=== PATIENT | female | born 1970 | race Caucasian/White ===

== ENCOUNTER 2016-07-08 09:54 | Emergency (ER) | payer OTHER ==
[~2016-07-08] VITALS: Ht 165.1 cm; Wt 156.0 kg
[~2016-07-08 09:54] MED LIST: ASPI81TA21 PO; FERR65TA PO; LISI-357 PO; VITA400C28 PO
[2016-07-08 10:03] VITALS: BP 122/76; PULSE 82; RESP 16; TEMP 97.3; O2SAT 100
[2016-07-08 11:05] VITALS: RESP 18; O2SAT 98
[2016-07-08] MEDS ORDERED: ASPI81CH CHEW (11:12)
[2016-07-08] MEDS ORDERED: FERR65TA PO (11:12)
[2016-07-08] MEDS ORDERED: LISI10TA3 PO (11:12)
[2016-07-08] MEDS ORDERED: CHOL400D2 PO (11:13)
[2016-07-08] MEDS ORDERED: SODIUM CHLORIDE 0.9% FLUSH 5 ML FLUSH IVF PRN (11:15)
--- NOTE | 2016-07-08 11:20 | PD ---
HPI Chief Complaint: Respiratory Symptoms Time Seen by Provider: 10:57 Travel History International Travel<30 days: No Contact w/Intl Traveler<30days: No Traveled to known affect area: No History of Present Illness HPI So 45-year-old woman presents to the emergency department complaining "my lungs are hurting". She states that starting yesterday and today she can tell that she was not breathing right. She has pain in her lungs that she localizes to kind of in her back below her scapula on both sides. She states she's had trouble with "reactive airway disease" in the past stated that she developed wheezing when she was sick before. Since he symptoms started she also feels that she has a deep voice, and is coughing some. She was remote history of tobacco use but has not smoked in 15 years or so. She also complains that her ankles and been swollen and her left leg hurts around her ankle. No history of blood clots in her legs or lungs. No other history of heart or lung disease. History Past Medical History Narrative Medical Hypertension "Reactive airway disease" Menopausal: No : 1 Para: 1 Social History Alcohol Use: No Tobacco Use: No Allergies-Medications (Allergen,Severity, Reaction): Coded Allergies: Bactrim (Verified Allergy, Severe, THROAT/TONGUE SWELLING, 04/20/16) Darvocet-N 100 (Verified Allergy, Severe, RASH, 04/20/16) Lortab (Verified Allergy, Severe, RASH, 04/20/16) PT VERBALIZES RASH Zithromax (Verified Allergy, Severe, rash, 04/20/16) Augmentin (Verified Adverse Reaction, Severe, N/V/D, 04/20/16) Reported Meds & Prescriptions Reported Meds & Active Scripts Active Reported Vitamin D (Cholecalciferol) 400 Unit/Ml Drops 400 Units PO EVERY OTHER DAY Feosol (Ferrous Sulfate) 65 Mg Tab 65 Mg PO EVERY OTHER DAY Lisinopril 10 Mg Tab 10 Mg PO EVERY OTHER DAY Aspirin 81 Mg Chew 81 Mg CHEW EVERY OTHER DAY Review of Systems Except as stated in HPI: all other systems reviewed are Neg Physical Exam Narrative GENERAL: Well-appearing 45-year-old woman, no acute distress. SKIN: Warm and dry. CARDIOVASCULAR: Regular rate and rhythm. No murmur appreciated. RESPIRATORY: No accessory muscle use. Clear to auscultation. Breath sounds equal bilaterally. GASTROINTESTINAL: Abdomen soft, non-tender, nondistended. Hepatic and splenic margins not palpable. MUSCULOSKELETAL: She is very obese legs. There is no obvious asymmetry. There is no calf tenderness. She has some minimal edema around her ankles. This is symmetric. She complains of pain in the edema on the left side. NEUROLOGICAL: Awake and alert. No obvious cranial nerve deficits. Motor grossly within normal limits. Normal speech. PSYCHIATRIC: Appropriate mood and affect; insight and judgment normal. Data Data Last Documented VS Vital Signs Date Time Temp Pulse Resp B/P Pulse Ox O2 Delivery O2 Flow Rate FiO2 07/08/16 11:42 77 18 122/66 100 Room Air 07/08/16 10:03 97.3 Orders Complete Blood Count With Diff (07/08/16 11:07) Basic Metabolic Panel (Bmp) (07/08/16 11:07) D-Dimer (07/08/16 11:07) Act Partial Throm Time (Ptt) (07/08/16 11:07) Prothrombin Time / Inr (Pt) (07/08/16 11:07) Iv Access Insert/Monitor (07/08/16 11:07) Electrocardiogram (07/08/16 11:07) Ecg Monitoring (07/08/16 11:07) Oximetry (07/08/16 11:07) Oxygen Administration (07/08/16 11:07) Chest, Pa & Lat (07/08/16 11:07) Sodium Chloride 0.9% Flush (Ns Flush) (07/08/16 11:15) Labs Laboratory Tests Test 07/08/16 11:20 White Blood Count 7.4 TH/MM3 Red Blood Count 4.74 MIL/MM3 Hemoglobin 12.2 GM/DL Hematocrit 38.5 % Mean Corpuscular Volume 81.2 FL Mean Corpuscular Hemoglobin 25.8 PG Mean Corpuscular Hemoglobin 31.8 % Concent Red Cell Distribution Width 14.3 % Platelet Count 310 TH/MM3 Mean Platelet Volume 7.4 FL Neutrophils (%) (Auto) 70.3 % Lymphocytes (%) (Auto) 19.4 % Monocytes (%) (Auto) 5.4 % Eosinophils (%) (Auto) 4.2 % Basophils (%) (Auto) 0.7 % Neutrophils # (Auto) 5.2 TH/MM3 Lymphocytes # (Auto) 1.4 TH/MM3 Monocytes # (Auto) 0.4 TH/MM3 Eosinophils # (Auto) 0.3 TH/MM3 Basophils # (Auto) 0.1 TH/MM3 CBC Comment DIFF FINAL Differential Comment Prothrombin Time 10.3 SEC Prothromb Time International 0.9 RATIO Ratio Activated Partial 28.2 SEC Thromboplast Time D-Dimer Quantitative (PE/DVT) 0.48 MG/L FEU Sodium Level 140 MEQ/L Potassium Level 4.5 MEQ/L Chloride Level 107 MEQ/L Carbon Dioxide Level 24.2 MEQ/L Anion Gap 9 MEQ/L Blood Urea Nitrogen 11 MG/DL Creatinine 0.92 MG/DL Estimat Glomerular Filtration 66 ML/MIN Rate Random Glucose 98 MG/DL Calcium Level 8.6 MG/DL [facility] Medical Decision Making Medical Screen Exam Complete: Yes Emergency Medical Condition: Yes Interpretation(s) My review of EKG: Normal sinus rhythm at a rate of 79, normal axis, normal intervals, no ischemia. LABS: CBC is unremarkable. BMP is unremarkable. Coags unremarkable D-dimer unremarkable Chest x-ray: Negative Differential Diagnosis Anxiety, pleurisy, URI, PE, other Narrative Course Medical decision making 45-year-old woman presents emergent from lung pain in deep voice. I think she probably is having accommodation of URI symptoms and anxiety. She has is complaints of some leg pain. She is very obese legs but no obvious edema or swelling to suggest syncope. Given the concern and the atypical nature of her chest pain, we'll check d-dimer. We'll check EKG and chest x-ray. Likely reassurance and supportive treatment. Diagnosis Primary Impression: Chest pain Qualified Code: R07.89 - Other chest pain Additional Instructions: Take Naprosyn as needed for lung pain. Follow-up with your primary doctor in the next 2-4 days if you're not feeling improved. Return to the emergency department for any worsening chest pain, trouble breathing, or any other new or worsening symptoms. Med/Other Pt SpecificInfo: Prescription(s) given Scripts Naproxen (Naprosyn)500 Mg [id number] Mg PO BID PRN (PAIN SCALE 1 TO 10) #20 TAB Prov:Liam Kruse MD 07/08/16 Disposition: 01 DISCHARGE HOME Condition: Stable Liam Kruse MD Jul 08, 2016 11:20
[2016-07-08 11:28] LABS: AUTOMATED NEUTROPHIL # 5.2 TH/MM3 (1.8-7.7); BASOPHIL # 0.1 TH/MM3 (0-0.2); BASOPHIL % 0.7 % (0.0-2.0); EOSINOPHIL # 0.3 TH/MM3 (0-0.4); EOSINOPHIL % 4.2 % (0.0-4.0); HEMATOCRIT 38.5 % (35.0-46.0); HEMO FLAGS DIFF FINAL; LYMPH % 19.4 % (9.0-44.0); LYMPHOCYTE # 1.4 TH/MM3 (1.0-4.8); MEAN CELL VOLUME 81.2 FL (80.0-100.0); MEAN CORPUSCULAR HEMOGLOBIN 25.8 PG (27.0-34.0); MEAN CORPUSCULAR HGB CONC 31.8 % (32.0-36.0); MONO % 5.4 % (0.0-8.0); NEUT % 70.3 % (16.0-70.0); PLATELET COUNT 310 TH/MM3 (150-450); RED BLOOD COUNT 4.74 MIL/MM3 (4.00-5.30); RED CELL DISTRIBUTION WIDTH 14.3 % (11.6-17.2); WHITE BLOOD COUNT 7.4 TH/MM3 (4.0-11.0)
[2016-07-08 11:35] LABS: POTASSIUM 4.5 MEQ/L (3.5-5.1)
[2016-07-08 11:39] LABS: BICARBONATE 24.2 MEQ/L (21.0-32.0)
[2016-07-08 11:42] VITALS: BP 122/66; PULSE 77; RESP 18; O2SAT 100
[2016-07-08 11:44] LABS: APTT (PATIENT) 28.2 SEC (24.3-30.1); INTERNATIONAL NORMALIZED RATIO 0.9 RATIO; PROTHROMBIN TIME - PATIENT 10.3 SEC (9.8-11.6)
--- NOTE | 2016-07-08 11:48 | RADHPO ---
EXAM DATE/TIME: 07/08/2016 11:25 [facility] COMPARISON: CHEST PA & LAT, July 11, 2015, 7:34. INDICATIONS : Chest pain, short of breath. MEDICAL HISTORY : None. SURGICAL HISTORY : None. ENCOUNTER: Initial ACUITY: 1 week PAIN SCORE: 4/10 LOCATION: Bilateral chest FINDINGS: PA and lateral views of the chest demonstrate the lungs to be symmetrically aerated without evidence of mass, infiltrate or effusion. The cardiomediastinal contours are unremarkable. Osseous structure s are intact. CONCLUSION: Normal examination for a patient of this age. No significant change has occurred. Jarred Souza MD on July 08, 2016 at 11:44 Board Certified Radiologist. This report was verified electronically.
[2016-07-08] MEDS ORDERED: NAPR500 PO (11:53)
--- NOTE | 2016-07-08 16:56 | EKG ---
Date Performed: 07/08/2016 Time Performed: 11:10:52 PTAGE: 45 years EKG: Sinus rhythm Normal ECG NO SIGNIFICANT CHANGE FROM PRIOR ELECTROCARDIOGRAM. PREVIOUS TRACING : 04/20/2016 10.00 DOCTOR: Patrick Banda Interpretating Date/Time 07/08/2016 16:54:46
== END 2016-07-08 12:11 | disposition home or self-care (01) ==
LOC: PHED 09:54
DX: R07.9 Chest pain, unspecified (principal); R06.02 Shortness of breath; I10 Essential (primary) hypertension; J45.909 Unspecified asthma, uncomplicated
CPT/HCPCS: 71020; 80048; 85025; 85379; 85610; 85730; 93005

== ENCOUNTER 2016-08-11 07:14 | Emergency (ER) | payer OTHER ==
[~2016-08-11] VITALS: Ht 165.1 cm; Wt 151.0 kg
[~2016-08-11 07:14] MED LIST changes: +ASPI81CH CHEW; -ASPI81TA21 PO; +CHOL400D2 PO; -LISI-357 PO; +LISI10TA3 PO; +NAPR500 PO; -VITA400C28 PO
[2016-08-11 07:23] VITALS: BP 139/81; PULSE 97; RESP 16; TEMP 98.4
[2016-08-11] MEDS ORDERED: ZOFR4TAB3 SL (07:41)
--- NOTE | 2016-08-11 07:41 | PD ---
HPI Chief Complaint: Cold / Flu Symptoms Time Seen by Provider: 07:39 Travel History International Travel<30 days: No Contact w/Intl Traveler<30days: No Traveled to known affect area: No History of Present Illness HPI Patient is a 45-year-old female presents with cough congestion sore throat and nausea since yesterday. Patient states she's had some phlegm production has been swallowing it just makes her nauseous. States that she has some over-the- counter nausea medicine that she uses because her lisinopril makes her nauseous. States no objective fevers but did feel cold and chills yesterday. Denies any close sick contacts. Denies any body aches. Denies any abdominal pain diarrhea or vomiting. 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, mini stoke) Psychiatric: Yes Reproductive: Yes Respiratory: Yes Integumentary: Yes (chronic athletes foot) Immunizations Current: No Migraines: Yes Tetanus Vaccination: < 5 Years Influenza Vaccination: No ?: Not LMP: 1 week ago Menopausal: No : 1 Para: 1 Miscarriage: 0 : 0 Ectopic : Yes (1991) Tubal Ligation: Yes (1991) Past Surgical History AICD: No Gynecologic Surgery: Yes (tubal ligation 92) Joint Replacement: No Other Surgery: Yes ([place]) Social History Alcohol Use: Yes (rarely-wine,beer) Tobacco Use: No (quit 14 yrs ago) Substance Use: No Allergies-Medications (Allergen,Severity, Reaction): Coded Allergies: Bactrim (Verified Allergy, Severe, THROAT/TONGUE SWELLING, 08/11/16) Darvocet-N 100 (Verified Allergy, Severe, RASH, 08/11/16) Lortab (Verified Allergy, Severe, RASH, 08/11/16) PT VERBALIZES RASH Zithromax (Verified Allergy, Severe, rash, 08/11/16) Augmentin (Verified Adverse Reaction, Severe, N/V/D, 08/11/16) Reported Meds & Prescriptions Reported Meds & Active Scripts Active Zofran Odt (Ondansetron Odt) 4 Mg Tab 4 Mg SL Q6HR PRN Reported Vitamin D (Cholecalciferol) 400 Unit/Ml Drops 400 Units PO EVERY OTHER DAY Feosol (Ferrous Sulfate) 65 Mg Tab 65 Mg PO EVERY OTHER DAY Lisinopril 10 Mg Tab 10 Mg PO EVERY OTHER DAY Aspirin 81 Mg Chew 81 Mg CHEW EVERY OTHER DAY Review of Systems Except as stated in HPI: all other systems reviewed are Neg Physical Exam Narrative GENERAL: Well-developed obese in no apparent distress SKIN: Warm and dry. HEAD: Atraumatic. Normocephalic. EYES: Pupils equal and round. No scleral icterus. No injection or drainage. ENT: No nasal bleeding or discharge. Mucous membranes pink and moist. Tonsils normal, TMs clear bilaterally. NECK: Trachea midline. No JVD. No lymphadenopathy. CARDIOVASCULAR: Regular rate and rhythm. No murmur appreciated. RESPIRATORY: No accessory muscle use. Clear to auscultation. Breath sounds equal bilaterally. GASTROINTESTINAL: Abdomen soft, non-tender, nondistended. Hepatic and splenic margins not palpable. MUSCULOSKELETAL: No obvious deformities. No clubbing. No cyanosis. No edema. Data Data Last Documented VS Vital Signs Date Time Temp Pulse Resp B/P Pulse Ox O2 Delivery O2 Flow Rate FiO2 08/11/16 07:32 16 97 Room Air 08/11/16 07:23 98.4 97 139/81 MDM Medical Decision Making Medical Screen Exam Complete: Yes Emergency Medical Condition: Yes Differential Diagnosis URI, pharyngitis unlikely, tonsillitis unlikely, pneumonia likely. Narrative Course Patient was roomed in the emergency department, my initial evaluation she is sitting upright in a stretcher talking on the cell phone and NAD. Physical exam is reassuring. Discussed with her symptomatically management will add Zofran. Discussed return to ED criteria and follow-up with a primary care physician. Diagnosis Primary Impression: URI (upper respiratory infection) Qualified Code: J06.9 - Viral upper respiratory tract infection Additional Impression: Nausea Departure Forms: Tests/Procedures, Work Release Enter return to work date: Aug 12, 2016 Med/Other Pt SpecificInfo: Prescription(s) given Scripts Ondansetron Odt (Zofran Odt)4 Mg Tab4 Mg SL Q6HR PRN (Nausea/Vomiting) #30 TAB Ref 0 Prov:Ramos Alberto MD 08/11/16 Disposition: 01 DISCHARGE HOME Condition: Stable Ramos Alberot MD Aug 11, 2016 07:41
== END 2016-08-11 07:57 | disposition home or self-care (01) ==
LOC: PHEFT 07:14
DX: J06.9 Acute upper respiratory infection, unspecified (principal); R11.0 Nausea
CPT/HCPCS: 99283

== ENCOUNTER 2016-08-17 07:25 | Emergency (ER) | payer OTHER ==
[~2016-08-17] VITALS: Ht 165.1 cm; Wt 150.0 kg
[~2016-08-17 07:25] MED LIST changes: -NAPR500 PO; +ZOFR4TAB3 SL
[2016-08-17 07:31] VITALS: BP 149/89; PULSE 110; RESP 16; TEMP 97.9; O2SAT 96
[2016-08-17] MEDS ORDERED: FLONASE (08:12)
[2016-08-17] MEDS ORDERED: CIPR-9 PO (08:12)
--- NOTE | 2016-08-17 08:12 | PD ---
HPI Chief Complaint: Dizziness Time Seen by Provider: 08:07 Travel History International Travel<30 days: No Contact w/Intl Traveler<30days: No Traveled to known affect area: No History of Present Illness HPI 45-year-old female is complains of congestion and facial pressure. Patient started having sore throat about a week ago. Patient states that the sore throat resolved after several days. Patient states that she has intermittent mild dry cough. Patient states that she has persistent nasal congestion with facial pain. Patient denies any nausea vomiting diarrhea. Patient denies any chest pain or shortness of breath. Patient denies abdominal pain. Patient denies any fever chills. 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, mini stoke) Psychiatric: Yes Reproductive: Yes Respiratory: Yes (RAD) Integumentary: Yes (chronic athletes foot, hx of cellulitis) Immunizations Current: No Migraines: Yes Tetanus Vaccination: < 5 Years Influenza Vaccination: No ?: Not LMP: 08/10/16 Menopausal: No : 1 Para: 1 Miscarriage: 0 : 0 Ectopic : Yes (1991) Tubal Ligation: Yes (1991) Past Surgical History AICD: No Gynecologic Surgery: Yes (tubal ligation 92) Joint Replacement: No Other Surgery: Yes ([place] OF [place] BLOCK[place]) Social History Alcohol Use: Yes (rarely-wine,beer) Tobacco Use: No (quit 14 yrs ago, hx of 2 ppd of cigs) Substance Use: No Allergies-Medications (Allergen,Severity, Reaction): Coded Allergies: Bactrim (Verified Allergy, Severe, THROAT/TONGUE SWELLING, 08/11/16) Darvocet-N 100 (Verified Allergy, Severe, RASH, 08/11/16) Lortab (Verified Allergy, Severe, RASH, 08/11/16) PT VERBALIZES RASH Zithromax (Verified Allergy, Severe, rash, 08/11/16) Augmentin (Verified Adverse Reaction, Severe, N/V/D, 08/11/16) Reported Meds & Prescriptions Reported Meds & Active Scripts Active Zofran Odt (Ondansetron Odt) 4 Mg Tab 4 Mg SL Q6HR PRN Reported Vitamin D (Cholecalciferol) 400 Unit/Ml Drops 400 Units PO EVERY OTHER DAY Feosol (Ferrous Sulfate) 65 Mg Tab 65 Mg PO DAILY Lisinopril 10 Mg Tab 10 Mg PO EVERY OTHER DAY Aspirin 81 Mg Chew 81 Mg CHEW EVERY OTHER DAY Review of Systems General / Constitutional: No: Fever Eyes: No: Visual changes HENT: Positive: Congestion, No: Headaches Cardiovascular: No: Chest Pain or Discomfort Respiratory: No: Shortness of Breath Gastrointestinal: No: Abdominal Pain Genitourinary: No: Dysuria Musculoskeletal: No: Pain Skin: No Rash Neurologic: No: Weakness Psychiatric: No: Depression Endocrine: No: Polydipsia Hematologic/Lymphatic: No: Easy Bruising Physical Exam Narrative GENERAL: Well-nourished, well-developed patient. SKIN: Warm and dry. HEAD: Normocephalic. EYES: No scleral icterus. No injection or drainage. TM: Clear. Throat: Nonerythematous. Patient has mild tenderness on palpation of frontal and maxillary sinus area. NECK: Supple, trachea midline. No JVD or lymphadenopathy. CARDIOVASCULAR: Regular rate and rhythm without murmurs, gallops, or rubs. RESPIRATORY: Breath sounds equal bilaterally. No accessory muscle use. GASTROINTESTINAL: Abdomen soft, non-tender, nondistended. MUSCULOSKELETAL: No cyanosis, or edema. BACK: Nontender without obvious deformity. No CVA tenderness. Data Data Last Documented VS Vital Signs Date Time Temp Pulse Resp B/P Pulse Ox O2 Delivery O2 Flow Rate FiO2 08/17/16 07:35 109 16 96 Room Air 08/17/16 07:31 97.9 149/89 MDM Medical Decision Making Medical Screen Exam Complete: Yes Emergency Medical Condition: Yes Differential Diagnosis Differential diagnosis including URI, otitis media, pharyngitis, sinusitis, bronchitis, pneumonia. Narrative Course 45-year-old female with nasal congestion and facial pressure pain. Diagnosis Primary Impression: Sinusitis, acute Qualified Code: J01.00 - Acute non-recurrent maxillary sinusitis Patient Instructions: General Instructions Additional Instructions: Take medications as directed. Follow-up with personal physician. Return if worse. Med/Other Pt SpecificInfo: Prescription(s) given Scripts [Flonase] No Conflict Check2 Celestine NA BID #1 Prov:Taran Bright MD 08/17/16 Ciprofloxacin (Cipro)500 Mg [id number] Mg PO BID #20 TAB Prov:Taran Bright MD 08/17/16 Disposition: 01 DISCHARGE HOME Condition: Stable Taran Bright MD Aug 17, 2016 08:12
== END 2016-08-17 08:21 | disposition home or self-care (01) ==
LOC: PHED 07:25
DX: J01.00 Acute maxillary sinusitis, unspecified (principal); R05 Cough; I10 Essential (primary) hypertension; E78.00 Pure hypercholesterolemia, unspecified; Z79.82 Long term (current) use of aspirin; Z86.2 Personal history of diseases of the blood and blood-forming organs and certain disorders involving the immune mechanism; Z87.09 Personal history of other diseases of the respiratory system; Z86.59 Personal history of other mental and behavioral disorders; Z86.79 Personal history of other diseases of the circulatory system; Z86.73 Personal history of transient ischemic attack (TIA), and cerebral infarction without residual deficits; Z87.448 Personal history of other diseases of urinary system; Z87.442 Personal history of urinary calculi; Z86.69 Personal history of other diseases of the nervous system and sense organs; Z87.42 Personal history of other diseases of the female genital tract; Z87.2 Personal history of diseases of the skin and subcutaneous tissue; Z87.891 Personal history of nicotine dependence
CPT/HCPCS: 99283

== ENCOUNTER 2016-09-09 20:41 | Emergency (ER) | payer OTHER ==
[~2016-09-09] VITALS: Ht 165.1 cm; Wt 151.6 kg
[~2016-09-09 20:41] MED LIST changes: +CIPR-9 PO; +FLONASE
[2016-09-09 20:46] VITALS: BP 143/84; PULSE 106; RESP 18; TEMP 98.2; O2SAT 96
[2016-09-09] MEDS ORDERED: CLINDAMYCIN 150 MG CAP PO ONE (22:45)
[2016-09-09] MEDS ORDERED: CLIN1CAP5 PO (22:49)
--- NOTE | 2016-09-09 22:49 | PD ---
HPI Chief Complaint: Skin Problem Time Seen by Provider: 22:20 Travel History International Travel<30 days: No Contact w/Intl Traveler<30days: No Traveled to known affect area: No History of Present Illness HPI 45-year-old female with history of cellulitis, here for evaluation of an area of cellulitis on her abdominal wall. The patient reports that she noticed the area about a week ago and it started out as a small pimple and has gradually expanded. 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 Today when she the shower she noticed that it was draining. She has been keeping the area clean with soap and water. Area is moderately painful, worse with palpation. She denies fevers or chills. No nausea or vomiting. No IVDU. No history of diabetes. 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, mini stoke) Psychiatric: Yes Reproductive: Yes Respiratory: Yes (RAD) Integumentary: Yes (chronic athletes foot, hx of cellulitis) Immunizations Current: No Migraines: Yes Menopausal: No : 1 Para: 1 Miscarriage: 0 : 0 Ectopic : Yes (1991) Tubal Ligation: Yes (1991) Past Surgical History AICD: No Gynecologic Surgery: Yes (tubal ligation 92) Joint Replacement: No Other Surgery: Yes ([place] OF [place] BLOCK[place]) Social History Alcohol Use: Yes (rarely-wine,beer) Tobacco Use: No (quit 14 yrs ago, hx of 2 ppd of cigs) Substance Use: No Allergies-Medications (Allergen,Severity, Reaction): Coded Allergies: Bactrim (Verified Allergy, Severe, THROAT/TONGUE SWELLING, 08/11/16) Darvocet-N 100 (Verified Allergy, Severe, RASH, 08/11/16) Lortab (Verified Allergy, Severe, RASH, 08/11/16) PT VERBALIZES RASH Zithromax (Verified Allergy, Severe, rash, 08/11/16) Augmentin (Verified Adverse Reaction, Severe, N/V/D, 08/11/16) Reported Meds & Prescriptions Reported Meds & Active Scripts Active [Flonase] 2 Vincent NA BID Cipro (Ciprofloxacin HCl) 500 Mg Tab 500 Mg PO BID Zofran Odt (Ondansetron Odt) 4 Mg Tab 4 Mg SL Q6HR PRN Reported Vitamin D (Cholecalciferol) 400 Unit/Ml Drops 400 Units PO EVERY OTHER DAY Feosol (Ferrous Sulfate) 65 Mg Tab 65 Mg PO DAILY Lisinopril 10 Mg Tab 10 Mg PO EVERY OTHER DAY Aspirin 81 Mg Chew 81 Mg CHEW EVERY OTHER DAY Review of Systems Except as stated in HPI: all other systems reviewed are Neg Physical Exam Narrative GENERAL: Well-developed, well-nourished, overweight, comfortable, no acute distress. SKIN: Warm and dry. Left upper abdominal wall there is a 10 x 5 cm oval area of erythema with an area of induration towards the center as well as a small circular area in the center that is spontaneously draining seropurulent fluid. This area was evaluated at the bedside by me using the linear ultrasound probe and shows cobblestoning which is consistent with cellulitis, no drainable fluid collection. HEAD: Atraumatic. Normocephalic. EYES: Pupils equal and round. No scleral icterus. No injection or drainage. ENT: No nasal bleeding or discharge. Mucous membranes pink and moist. CARDIOVASCULAR: Regular rate and rhythm. No murmur appreciated. RESPIRATORY: No accessory muscle use. Clear to auscultation. Breath sounds equal bilaterally. GASTROINTESTINAL: Abdomen soft, nondistended. Mild tenderness over area of cellulitis described above. Rest of abdomen is soft and nontender. MUSCULOSKELETAL: No obvious deformities. No clubbing. No cyanosis. No edema. NEUROLOGICAL: Awake and alert. No obvious cranial nerve deficits. Motor grossly within normal limits. Normal speech. PSYCHIATRIC: Appropriate mood and affect; insight and judgment normal. Data Data Last Documented VS Vital Signs Date Time Temp Pulse Resp B/P Pulse Ox O2 Delivery O2 Flow Rate FiO2 09/09/16 20:46 98.2 106 18 143/84 96 MDM Medical Decision Making Medical Screen Exam Complete: Yes Emergency Medical Condition: Yes Medical Record Reviewed: Yes Differential Diagnosis Abdominal wall cellulitis, abdominal wall abscess Narrative Course Vital signs show heart rate 106, blood pressure 143/84, pulse ox 96% on room air , oral temp of 98.2F. Heart rate improved to 88 without any intervention. Patient has an abdominal wall cellulitis. This area is approximately 5 x 10 cm and is oval shaped. Blue marking pen was used to ayo the margins. Patient's vital signs are within normal limits. She has had several episodes of sialitis in the past. The area of sialitis has an area of induration in the center that is spontaneously draining seropurulent drainage. Wound culture obtained. Plan is to discharge patient home with a prescription for clindamycin and to return in 2 days for wound check. She was informed on when to return to the emergency Department sooner. She verbalizes understanding and agreement with plan. Diagnosis Primary Impression: Abdominal wall cellulitis Referrals: Primary Care Physician 3 days Additional Instructions: Follow-up with a primary care physician this week. Return to the emergency Department in 2 days for a wound check. Take antibiotics as prescribed. Return to the emergency Department sooner for worsening symptoms or any other concerns as discussed. Scripts Clindamycin 150 Mg [id number] Mg PO Q6H 10 Days Ref 0 Prov:Keith Gonzales MD 09/09/16 Disposition: 01 DISCHARGE HOME Condition: Stable Keith Gonzales MD Sep 09, 2016 22:49
[2016-09-09 23:29] VITALS: BP 136/82
== END 2016-09-09 23:30 | disposition home or self-care (01) ==
LOC: PHED 20:41
DX: L03.311 Cellulitis of abdominal wall (principal); B95.61 Methicillin susceptible Staphylococcus aureus infection as the cause of diseases classified elsewhere; I73.00 Raynaud's syndrome without gangrene; I10 Essential (primary) hypertension; E78.00 Pure hypercholesterolemia, unspecified; Z86.73 Personal history of transient ischemic attack (TIA), and cerebral infarction without residual deficits; Z87.442 Personal history of urinary calculi; J45.909 Unspecified asthma, uncomplicated
CPT/HCPCS: 86403; 87070; 87186; 87205; 99283

== ENCOUNTER 2016-11-27 18:56 | Emergency (ER) | payer OTHER ==
[~2016-11-27] VITALS: Ht 165.1 cm; Wt 146.4 kg
[~2016-11-27 18:56] MED LIST changes: -CIPR-9 PO; +CLIN1CAP5 PO; -FLONASE; -ZOFR4TAB3 SL
[2016-11-27 19:02] VITALS: BP 141/84; PULSE 104; RESP 12; TEMP 98.5; O2SAT 97
--- NOTE | 2016-11-27 19:21 | PD ---
HPI Chief Complaint: Cold / Flu Symptoms Time Seen by Provider: 19:08 Travel History International Travel<30 days: No Contact w/Intl Traveler<30days: No Traveled to known affect area: No History of Present Illness HPI This 45-year-old female says she been sick for several days. She's been coughing up some yellow phlegm. She has had yellow drainage from her nose and pain in her sinuses. She's had a sore throat. she has a history of hypertension. 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, mini stoke) Psychiatric: Yes Reproductive: Yes Respiratory: Yes (RAD) Integumentary: Yes (chronic athletes foot, hx of cellulitis) Immunizations Current: No Migraines: Yes Menopausal: Yes : 1 Para: 1 Miscarriage: 0 : 0 Ectopic : Yes (1991) Tubal Ligation: Yes (1991) Past Surgical History AICD: No Gynecologic Surgery: Yes (tubal ligation 92, eptopic ) Joint Replacement: No Other Surgery: Yes ([place] [facility]) Social History Alcohol Use: Yes (rarely-wine,beer) Tobacco Use: No (quit 14 yrs ago, hx of 2 ppd of cigs) Substance Use: No Allergies-Medications (Allergen,Severity, Reaction): Coded Allergies: Bactrim (Verified Allergy, Severe, THROAT/TONGUE SWELLING, 09/09/16) Darvocet-N 100 (Verified Allergy, Severe, RASH, 09/09/16) Lortab (Verified Allergy, Severe, RASH, 09/09/16) PT VERBALIZES RASH Zithromax (Verified Allergy, Severe, rash, 09/09/16) Augmentin (Verified Adverse Reaction, Severe, N/V/D, 09/09/16) Reported Meds & Prescriptions Reported Meds & Active Scripts Active Clindamycin (Clindamycin HCl) 150 Mg Cap 450 Mg PO Q6H 10 Days Reported Vitamin D (Cholecalciferol) 400 Unit/Ml Drops 400 Units PO EVERY OTHER DAY Feosol (Ferrous Sulfate) 65 Mg Tab 65 Mg PO DAILY Lisinopril 10 Mg Tab 10 Mg PO EVERY OTHER DAY Aspirin 81 Mg Chew 81 Mg CHEW EVERY OTHER DAY Review of Systems General / Constitutional: Positive: Chills, No: Fever Eyes: No: Diploplia HENT: Positive: Sore Throat, Rhinitis Cardiovascular: No: Chest Pain or Discomfort, Palpitations Respiratory: Positive: Cough Gastrointestinal: No: Nausea, Vomiting Genitourinary: No: Urgency, Frequency Musculoskeletal: No: Myalgias, Arthralgias Skin: No Rash, No Itching Neurologic: Positive: Weakness Endocrine: No: Heat Intolerance Physical Exam Narrative GENERAL: Well-developed female SKIN: Focused skin assessment warm/dry. HEAD: Atraumatic. Normocephalic. EYES: Pupils equal and round. No scleral icterus. No injection or drainage. ENT: No nasal bleeding. There is purulent drainage from her nose. There is bilateral maxillary sinus tenderness. Mucous membranes pink and moist. NECK: Trachea midline. No JVD. Posterior pharynx is erythematous without exudate. There is no lymphadenopathy CARDIOVASCULAR: Regular rate and rhythm. No murmur appreciated. RESPIRATORY: No accessory muscle use. Clear to auscultation. Breath sounds equal bilaterally. GASTROINTESTINAL: Abdomen soft, non-tender, nondistended. Hepatic and splenic margins not palpable. MUSCULOSKELETAL: No obvious deformities. No clubbing. No cyanosis. No edema. NEUROLOGICAL: Awake and alert. No obvious cranial nerve deficits. Motor grossly within normal limits. Normal speech. PSYCHIATRIC: Appropriate mood and affect; insight and judgment normal. Data Data Last Documented VS Vital Signs Date Time Temp Pulse Resp B/P Pulse Ox O2 Delivery O2 Flow Rate FiO2 11/27/16 19:02 98.5 104 12 141/84 97 MDM Medical Decision Making Medical Screen Exam Complete: Yes Emergency Medical Condition: Yes Medical Record Reviewed: Yes Differential Diagnosis Differential includes URI, pharyngitis, sinusitis Narrative Course Exam is consistent with acute sinusitis Diagnosis Primary Impression: Sinusitis, acute Qualified Code: J01.00 - Acute maxillary sinusitis, recurrence not specified Disposition: DISCHARGE HOME Condition: Stable Alok Worrell MD November 27, 2016 19:21
[2016-11-27] MEDS ORDERED: FERR200T PO (19:22)
[2016-11-27] MEDS ORDERED: AMOX500T PO (19:25)
[2016-11-27 19:37] VITALS: BP 149/71
== END 2016-11-27 19:39 | disposition home or self-care (01) ==
LOC: PHED 18:56
DX: J01.00 Acute maxillary sinusitis, unspecified (principal); R53.1 Weakness; J45.909 Unspecified asthma, uncomplicated; I73.00 Raynaud's syndrome without gangrene; F41.9 Anxiety disorder, unspecified; I10 Essential (primary) hypertension; E78.00 Pure hypercholesterolemia, unspecified; F17.200 Nicotine dependence, unspecified, uncomplicated; Z86.73 Personal history of transient ischemic attack (TIA), and cerebral infarction without residual deficits
CPT/HCPCS: 99283

== ENCOUNTER 2017-03-03 07:02 | Emergency (ER) | payer OTHER ==
[~2017-03-03] VITALS: Ht 165.1 cm; Wt 147.0 kg
[~2017-03-03 07:02] MED LIST changes: +AMOX500T PO; -CLIN1CAP5 PO; +FERR200T PO; -FERR65TA PO
[2017-03-03 07:07] VITALS: BP 189/92; PULSE 101; RESP 16; TEMP 98.2; O2SAT 98
[2017-03-03] MEDS ORDERED: HYDR50TA94 PO (07:30)
--- NOTE | 2017-03-03 07:30 | PD ---
HPI . Facial swelling Chief Complaint: Skin Problem Time Seen by Provider: 07:24 Travel History International Travel<30 days: No Contact w/Intl Traveler<30days: No Traveled to known affect area: No History of Present Illness HPI Patient presents with burning and swelling of her right cheek. Acute onset on awakening this morning. She had no symptoms last night before bed. She denies any associated symptoms such as fever, nausea or vomiting. No known modifying factors. She rates her discomfort as 6/10. 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, mini stoke) Psychiatric: Yes Reproductive: Yes Respiratory: Yes (RAD) Integumentary: Yes (chronic athletes foot, hx of cellulitis) Immunizations Current: No Migraines: Yes Influenza Vaccination: No ?: Not Menopausal: Yes : 1 Para: 1 Miscarriage: 0 : 0 Ectopic : Yes (1991) Tubal Ligation: Yes (1991) Past Surgical History AICD: No Gynecologic Surgery: Yes (tubal ligation 92, eptopic ) Joint Replacement: No Other Surgery: Yes ([place] [facility]) Social History Alcohol Use: No Tobacco Use: No (quit 14 yrs ago) Substance Use: No Allergies-Medications (Allergen,Severity, Reaction): Coded Allergies: acetaminophen (Unverified Allergy, Severe, RASH, 02/16/17) azithromycin (Unverified Allergy, Severe, rash, 02/16/17) hydrocodone (Unverified Allergy, Severe, RASH, 02/16/17) PT VERBALIZES RASH propoxyphene (Unverified Allergy, Severe, RASH, 02/16/17) sulfamethoxazole (Unverified Allergy, Severe, THROAT/TONGUE SWELLING, 02/16) trimethoprim (Unverified Allergy, Severe, THROAT/TONGUE SWELLING, 02/16/17) amoxicillin (Unverified Adverse Reaction, Severe, N/V/D, 02/16/17) clavulanic acid (Unverified Adverse Reaction, Severe, N/V/D, 02/16/17) Reported Meds & Prescriptions Reported Meds & Active Scripts Active Amoxicillin 500 Mg Tab 500 Mg PO TID 10 Days Reported Feosol (Ferrous Sulfate) 200 Mg Tab 65 Mg PO DAILY Vitamin D (Cholecalciferol) 400 Unit/Ml Drops 400 Units PO EVERY OTHER DAY Lisinopril 10 Mg Tab 10 Mg PO EVERY OTHER DAY Aspirin 81 Mg Chew 81 Mg CHEW EVERY OTHER DAY Review of Systems Except as stated in HPI: all other systems reviewed are Neg General / Constitutional: No: Fever, Chills Eyes: No: Diploplia, Blurred Vision HENT: No: Headaches Gastrointestinal: No: Nausea, Vomiting Skin: Positive Itching, Positive Dryness, Positive Change in Pigmentation Physical Exam Narrative GENERAL: Awake and alert and in no acute distress. SKIN: Warm and dry. She has a well-demarcated area of erythema and induration on the right cheek. There is no fluctuance. She also has some patches on her right millan. They are papular, scabbed and excoriated. HEAD: Atraumatic. Normocephalic. EYES: Pupils equal and round. NECK: Trachea midline. No cervical lymphadenopathy. CARDIOVASCULAR: Regular rate and rhythm. RESPIRATORY: No accessory muscle use. MUSCULOSKELETAL: No obvious deformities. No edema. NEUROLOGICAL: Awake and alert. No obvious cranial nerve deficits. Motor grossly within normal limits. Normal speech. PSYCHIATRIC: Appropriate mood and affect; insight and judgment normal. Data Data Last Documented VS Vital Signs Date Time Temp Pulse Resp B/P (MAP) Pulse Ox O2 Delivery O2 Flow Rate FiO2 03/03/17 07:07 98.2 101 16 189/92 (124) 98 Room Air MDM Medical Decision Making Medical Screen Exam Complete: Yes Emergency Medical Condition: Yes Differential Diagnosis My differential diagnosis includes but is not limited to localized wound infection, cellulitis, abscess, localized allergic reaction, normal bug bite Narrative Course This patient presents with some redness, swelling and burning of the right cheek. Her exam is compatible with a localized allergic reaction to a bug bite. Be discharged on cool compresses and Atarax. Diagnosis Primary Impression: Minor allergic reaction Qualified Codes: T78.40XA - Allergy, unspecified, initial encounter Additional Instructions: Hydroxyzine for itching and burning. Cool compresses for redness and swelling. Med/Other Pt SpecificInfo: Prescription(s) given Scripts Hydroxyzine HCl (Hydroxyzine HCl) 50 Mg Tab 50 MG PO QID Y for burning, #30 TAB 0 Refills Prov: Mary Trevizo MD 03/03/17 Disposition: 01 DISCHARGE HOME Condition: Stable Mary Trevizo MD Mar 03, 2017 07:30
== END 2017-03-03 07:46 | disposition home or self-care (01) ==
LOC: PHED 07:02
DX: T78.40XA Allergy, unspecified, initial encounter (principal); Z87.891 Personal history of nicotine dependence; D64.9 Anemia, unspecified; I10 Essential (primary) hypertension; I73.00 Raynaud's syndrome without gangrene; J45.909 Unspecified asthma, uncomplicated; Z86.73 Personal history of transient ischemic attack (TIA), and cerebral infarction without residual deficits; Z88.0 Allergy status to penicillin; Z79.82 Long term (current) use of aspirin
CPT/HCPCS: 99283

== ENCOUNTER 2017-03-25 07:26 | Emergency (ER) | payer OTHER ==
[~2017-03-25] VITALS: Ht 165.1 cm; Wt 148.0 kg
[~2017-03-25 07:26] MED LIST changes: +HYDR50TA94 PO
[2017-03-25 07:29] VITALS: BP 179/85; PULSE 97; RESP 18; TEMP 98.9; O2SAT 96
[2017-03-25] MEDS ORDERED: CLOT1CRE TOPICAL (07:49)
[2017-03-25] MEDS ORDERED: CEPH-460 PO (07:49)
--- NOTE | 2017-03-25 07:50 | PD ---
HPI Chief Complaint: Skin Problem Time Seen by Provider: 07:48 Travel History International Travel<30 days: No Contact w/Intl Traveler<30days: No Traveled to known affect area: No History of Present Illness HPI 46 F c/o right lateral leg pain, swelling, erythema for approx 2 days. pain is worse with palpation. no fever. onset gradual timing constant. right lower leg with erythema for weeks, typically worse after shaving. 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, mini stoke) Psychiatric: Yes Reproductive: Yes Respiratory: Yes (RAD) Integumentary: Yes (chronic athletes foot, hx of cellulitis) Immunizations Current: No Migraines: Yes ?: Not LMP: IRREGULAR, 6 WEEKS AGO Menopausal: Yes : 1 Para: 1 Miscarriage: 0 : 0 Ectopic : Yes (1991) Tubal Ligation: Yes (1991) Past Surgical History AICD: No Gynecologic Surgery: Yes (tubal ligation 92, eptopic ) Joint Replacement: No Other Surgery: Yes ([place] [facility]) Social History Alcohol Use: No Tobacco Use: No (quit 14 yrs ago) Substance Use: No Allergies-Medications (Allergen,Severity, Reaction): Coded Allergies: acetaminophen (Unverified Allergy, Severe, RASH, 03/25/17) azithromycin (Unverified Allergy, Severe, rash, 03/25/17) hydrocodone (Unverified Allergy, Severe, RASH, 03/25/17) PT VERBALIZES RASH propoxyphene (Unverified Allergy, Severe, RASH, 03/25/17) sulfamethoxazole (Unverified Allergy, Severe, THROAT/TONGUE SWELLING, 03/25) trimethoprim (Unverified Allergy, Severe, THROAT/TONGUE SWELLING, 03/25/17) amoxicillin (Unverified Adverse Reaction, Severe, N/V/D, 03/25/17) clavulanic acid (Unverified Adverse Reaction, Severe, N/V/D, 03/25/17) Reported Meds & Prescriptions Reported Meds & Active Scripts Active Keflex (Cephalexin) 500 Mg Capsule 500 Mg PO TID 10 Days Clotrimazole Topical (Clotrimazole) 1% Cream 1 Applic TOPICAL BID 14 Days Hydroxyzine HCl 50 Mg Tab 50 Mg PO QID PRN Amoxicillin 500 Mg Tab 500 Mg PO TID 10 Days Reported Feosol (Ferrous Sulfate) 200 Mg Tab 65 Mg PO DAILY Vitamin D (Cholecalciferol) 400 Unit/Ml Drops 400 Units PO EVERY OTHER DAY Lisinopril 10 Mg Tab 10 Mg PO EVERY OTHER DAY Aspirin 81 Mg Chew 81 Mg CHEW EVERY OTHER DAY Review of Systems General / Constitutional: No: Fever Skin: Positive Rash Physical Exam Narrative GENERAL: 46 yo F, NAD SKIN: Warm and dry. right lateral thigh with approx 10 cm x 5 cm erythema/ induration/warmth with central pustule, no fluctuance. R lower leg with approx 15 cm round ring like erythematous, dry clearly marginated lesion with central clearing. HEAD: Normocephalic. EYES: No scleral icterus. No injection or drainage. NECK: Supple, trachea midline. No JVD or lymphadenopathy. CARDIOVASCULAR: Regular rate and rhythm without murmurs, gallops, or rubs. RESPIRATORY: Breath sounds equal bilaterally. No accessory muscle use. GASTROINTESTINAL: Abdomen soft, non-tender, nondistended. MUSCULOSKELETAL: No cyanosis, or edema. BACK: Nontender without obvious deformity. No CVA tenderness. Data Data Last Documented VS Vital Signs Date Time Temp Pulse Resp B/P (MAP) Pulse Ox O2 Delivery O2 Flow Rate FiO2 03/25/17 07:29 98.9 97 18 179/85 (116) 96 vs reviewed MDM Medical Decision Making Medical Screen Exam Complete: Yes Emergency Medical Condition: Yes Medical Record Reviewed: Yes Differential Diagnosis cellulitis, abscess, necrotizing fasciitis, tinea corporis Narrative Course Small cellulitis right lateral thigh - keflex Tinea corporis right lower leg - clotrimazole return precautions discussed Diagnosis Primary Impression: Cellulitis, leg Qualified Codes: L03.115 - Cellulitis of right lower limb Additional Impression: Tinea corporis Referrals: Primary Care Physician call for appointment Additional Instructions: PLEASE FOLLOW UP WITH PRIMARY DOCTOR IF REDNESS INCREASES IN SIZE OR IF YOU DEVELOP A FEVER. PLEASE COMPLETE ANTIBIOTIC COURSE. Med/Other Pt SpecificInfo: Prescription(s) given Scripts Cephalexin (Keflex) 500 Mg Capsule 500 MG PO TID for Infection for 10 Days, CAP 0 Refills Prov: Rolando Jones MD 03/25/17 Clotrimazole Topical (Clotrimazole Topical) 1% Cream 1 APPLIC TOPICAL BID for 14 Days, #45 GM Prov: Rolando Jones MD 03/25/17 Disposition: 01 DISCHARGE HOME Condition: Stable Rolando Jones MD Mar 25, 2017 07:50
== END 2017-03-25 08:07 | disposition home or self-care (01) ==
LOC: PHED 07:26
DX: L03.115 Cellulitis of right lower limb (principal); B35.4 Tinea corporis; E78.00 Pure hypercholesterolemia, unspecified; I10 Essential (primary) hypertension; I73.00 Raynaud's syndrome without gangrene; J45.909 Unspecified asthma, uncomplicated; Z79.82 Long term (current) use of aspirin; Z86.73 Personal history of transient ischemic attack (TIA), and cerebral infarction without residual deficits; Z88.0 Allergy status to penicillin
CPT/HCPCS: 99283

== ENCOUNTER 2017-04-21 14:28 | Emergency (ER) | payer OTHER ==
[~2017-04-21] VITALS: Ht 167.6 cm; Wt 146.0 kg
[~2017-04-21 14:28] MED LIST changes: +CEPH-460 PO; +CLOT1CRE TOPICAL
[2017-04-21 14:55] VITALS: BP 141/82; PULSE 85; RESP 16; TEMP 98.5; O2SAT 100
--- NOTE | 2017-04-21 15:29 | PD ---
HPI Chief Complaint: Foreign Body Time Seen by Provider: 15:18 Travel History International Travel<30 days: No Contact w/Intl Traveler<30days: No Traveled to known affect area: No History of Present Illness HPI This is a 46-year-old female who presents to the emergency department having been eating beef stew when she fell but she thinks there is a carrot stuck in her throat. She is having pain when she swallows and she was unable to swallow water without vomiting, her pain is constant, moderate severity, with no associated trouble breathing. This is never happened to her before. 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, mini stoke) Psychiatric: Yes Reproductive: Yes Respiratory: Yes (RAD) Integumentary: Yes (chronic athletes foot, hx of cellulitis) Immunizations Current: No Migraines: Yes ?: Not LMP: 03/21/17 Menopausal: Yes : 1 Para: 1 Miscarriage: 0 : 0 Ectopic : Yes (1991) Tubal Ligation: Yes (1991) Past Surgical History AICD: No Gynecologic Surgery: Yes (tubal ligation 92, eptopic ) Joint Replacement: No Other Surgery: Yes ([place] [facility]) Social History Alcohol Use: No Tobacco Use: No (quit 14 yrs ago) Substance Use: No Allergies-Medications (Allergen,Severity, Reaction): Coded Allergies: acetaminophen (Unverified Allergy, Severe, RASH, 04/21/17) azithromycin (Unverified Allergy, Severe, rash, 04/21/17) hydrocodone (Unverified Allergy, Severe, RASH, 04/21/17) PT VERBALIZES RASH propoxyphene (Unverified Allergy, Severe, RASH, 04/21/17) sulfamethoxazole (Unverified Allergy, Severe, THROAT/TONGUE SWELLING, ) trimethoprim (Unverified Allergy, Severe, THROAT/TONGUE SWELLING, 04/21/17 ) amoxicillin (Unverified Adverse Reaction, Severe, N/V/D, 04/21/17) clavulanic acid (Unverified Adverse Reaction, Severe, N/V/D, 04/21/17) Reported Meds & Prescriptions Reported Meds & Active Scripts Active Reported Feosol (Ferrous Sulfate) 200 Mg Tab 65 Mg PO DAILY Vitamin D (Cholecalciferol) 400 Unit/Ml Drops 400 Units PO EVERY OTHER DAY Lisinopril 10 Mg Tab 10 Mg PO EVERY OTHER DAY Aspirin 81 Mg Chew 81 Mg CHEW EVERY OTHER DAY Review of Systems Except as stated in HPI: all other systems reviewed are Neg Physical Exam Narrative GENERAL:Well appearing, no acute distress SKIN: Focused skin assessment warm and dry. HEAD: Atraumatic. Normocephalic. EYES: Pupils equal and round. No injection or drainage. ENT: Moist mucous membranes. Handling her secretions. NECK: Trachea midline. CARDIOVASCULAR: Regular rate and rhythm. No murmur appreciated. RESPIRATORY: Clear to auscultation. Breath sounds equal bilaterally. GASTROINTESTINAL: Abdomen soft, non-tender, nondistended. MUSCULOSKELETAL: No obvious deformities. NEUROLOGICAL: Awake and alert. No obvious cranial nerve deficits. Moving all extremities. PSYCHIATRIC: Appropriate mood and affect; insight and judgment normal. Data Data Last Documented VS Vital Signs Date Time Temp Pulse Resp B/P (MAP) Pulse Ox O2 Delivery O2 Flow Rate FiO2 04/21/17 14:55 98.5 85 16 141/82 (101) 100 Orders Orders Complete Blood Count With Diff (04/21/17 15:22) Basic Metabolic Panel (Bmp) (04/21/17 15:22) Prothrombin Time / Inr (Pt) (04/21/17 15:22) Act Partial Throm Time (Ptt) (04/21/17 15:22) Glucagon Inj (Glucagon Inj) (04/21/17 15:30) ^ Insert Iv (04/21/17 15:22) Labs Laboratory Tests Test 04/21/17 15:39 [facility] Medical Decision Making Medical Screen Exam Complete: Yes Emergency Medical Condition: Yes Interpretation(s) Afebrile, no tachycardia, normotensive Differential Diagnosis Esophageal food impaction, esophageal stricture, achalasia Narrative Course This is a 46-year-old female who presents to the emergency department with an esophageal food impaction. She is handling her secretions. She was given a dose of IV glucagon. Gastroenterology will be consulted for potential intervention. Alethea Brown MD Apr 21, 2017 15:29
[2017-04-21] MEDS ORDERED: GLUCAGON 1 MG/ML VIAL IV PUSH ONE (15:30)
--- NOTE | 2017-04-21 15:56 | PD ---
Data Data Last Documented VS Vital Signs Date Time Temp Pulse Resp B/P (MAP) Pulse Ox O2 Delivery O2 Flow Rate FiO2 04/21/17 14:55 98.5 85 16 141/82 (101) 100 Orders Orders Complete Blood Count With Diff (04/21/17 15:22) Basic Metabolic Panel (Bmp) (04/21/17 15:22) Prothrombin Time / Inr (Pt) (04/21/17 15:22) Act Partial Throm Time (Ptt) (04/21/17 15:22) Glucagon Inj (Glucagon Inj) (04/21/17 15:30) ^ Insert Iv (04/21/17 15:22) Labs Laboratory Tests Test 04/21/17 15:39 MDM Supervised Visit with ZORA: No Narrative Course Dr. Carrero agreed to take patient for EGD Diagnosis Primary Impression: Food impaction of esophagus Qualified Codes: T18.128A - Food in esophagus causing other injury, initial encounter Admitting Information Admitting Physician Requests: Observation Alethea Brown MD Apr 21, 2017 15:56
[2017-04-21 16:06] LABS: POTASSIUM 3.8 MEQ/L (3.5-5.1)
[2017-04-21 16:09] LABS: BICARBONATE 28.6 MEQ/L (21.0-32.0)
[2017-04-21 16:10] LABS: APTT (PATIENT) 28.9 SEC (24.3-30.1); PROTHROMBIN TIME - PATIENT 10.7 SEC (9.8-11.6)
[2017-04-21 16:25] LABS: AUTOMATED NEUTROPHIL # 5.4 TH/MM3 (1.8-7.7); BASOPHIL % 0.5 % (0.0-2.0); EOSINOPHIL # 0.2 TH/MM3 (0-0.4); HEMATOCRIT 40.5 % (35.0-46.0); HEMO FLAGS DIFF FINAL; LYMPH % 18.1 % (9.0-44.0); LYMPHOCYTE # 1.4 TH/MM3 (1.0-4.8); MEAN CELL VOLUME 80.1 FL (80.0-100.0); MEAN CORPUSCULAR HEMOGLOBIN 25.2 PG (27.0-34.0); MEAN CORPUSCULAR HGB CONC 31.5 % (32.0-36.0); MONO % 7.2 % (0.0-8.0); NEUT % 71.2 % (16.0-70.0); PLATELET COUNT 315 TH/MM3 (150-450); RED BLOOD COUNT 5.05 MIL/MM3 (4.00-5.30); RED CELL DISTRIBUTION WIDTH 14.5 % (11.6-17.2); WHITE BLOOD COUNT 7.5 TH/MM3 (4.0-11.0)
--- NOTE | 2017-04-21 17:12 | PD ---
Physical Exam Narrative Patient was seen by ED physician and greenstone polisher operator Dr. Carrero. Patient was diagnosed with food impaction with total obstruction of the esophagus. Data Data Last Documented VS Vital Signs Date Time Temp Pulse Resp B/P (MAP) Pulse Ox O2 Delivery O2 Flow Rate FiO2 04/21/17 14:55 98.5 85 16 141/82 (101) 100 Orders Orders Complete Blood Count With Diff (04/21/17 15:22) Basic Metabolic Panel (Bmp) (04/21/17 15:22) Prothrombin Time / Inr (Pt) (04/21/17 15:22) Act Partial Throm Time (Ptt) (04/21/17 15:22) Glucagon Inj (Glucagon Inj) (04/21/17 15:30) ^ Insert Iv (04/21/17 15:) Admit Order (Ed Use Only) (04/21/17 15:56) Labs Laboratory Tests Test 04/21/17 15:39 White Blood Count 7.5 TH/MM3 Red Blood Count 5.05 MIL/MM3 Hemoglobin 12.7 GM/DL Hematocrit 40.5 % Mean Corpuscular Volume 80.1 FL Mean Corpuscular Hemoglobin 25.2 PG Mean Corpuscular Hemoglobin Concent 31.5 % Red Cell Distribution Width 14.5 % Platelet Count 315 TH/MM3 Mean Platelet Volume 8.0 FL Neutrophils (%) (Auto) 71.2 % Lymphocytes (%) (Auto) 18.1 % Monocytes (%) (Auto) 7.2 % Eosinophils (%) (Auto) 3.0 % Basophils (%) (Auto) 0.5 % Neutrophils # (Auto) 5.4 TH/MM3 Lymphocytes # (Auto) 1.4 TH/MM3 Monocytes # (Auto) 0.5 TH/MM3 Eosinophils # (Auto) 0.2 TH/MM3 Basophils # (Auto) 0.0 TH/MM3 CBC Comment DIFF FINAL Differential Comment Prothrombin Time 10.7 SEC Prothromb Time International Ratio 1.0 RATIO Activated Partial Thromboplast Time 28.9 SEC Blood Urea Nitrogen 11 MG/DL Creatinine 1.00 MG/DL Random Glucose 90 MG/DL Calcium Level 8.9 MG/DL Sodium Level 137 MEQ/L Potassium Level 3.8 MEQ/L Chloride Level 100 MEQ/L Carbon Dioxide Level 28.6 MEQ/L Anion Gap 8 MEQ/L Estimat Glomerular Filtration Rate 60 ML/MIN [facility] Supervised Visit with ZORA: No Narrative Course Pick Pulling Machine Operator Dr. Carrero came to see the patient. Patient passed the food bolus without any intervention. Patient was advised to be discharged. Diagnosis Primary Impression: Food impaction of esophagus Qualified Codes: T18.128A - Food in esophagus causing other injury, initial encounter Patient Instructions: General Instructions Additional Instruction: Advised patient to follow-up with personal physician and GI specialist. Return as needed. Med/Other Pt SpecificInfo: No Change to Meds Disposition: 01 DISCHARGE HOME Condition: Stable Taran Bright MD Apr 21, 2017 17:12
== END 2017-04-21 17:20 | disposition home or self-care (01) ==
LOC: PHEFT 14:28
DX: T18.128A Food in esophagus causing other injury, initial encounter (principal); I10 Essential (primary) hypertension; Z87.891 Personal history of nicotine dependence; Z79.82 Long term (current) use of aspirin; Z79.899 Other long term (current) drug therapy; Z86.73 Personal history of transient ischemic attack (TIA), and cerebral infarction without residual deficits
CPT/HCPCS: 80048; 85025; 85610; 85730; 96374; 99284; J1610

== ENCOUNTER 2017-12-01 07:13 | Emergency (ER) | payer OTHER ==
[~2017-12-01] VITALS: Ht 165.1 cm; Wt 154.1 kg
[~2017-12-01 07:13] MED LIST changes: -AMOX500T PO; +ASPI-516 CHEW; -ASPI81CH CHEW; -CEPH-460 PO; -CLOT1CRE TOPICAL; -HYDR50TA94 PO
[2017-12-01 07:22] VITALS: BP 184/87; PULSE 109; RESP 16; TEMP 99.5; O2SAT 95
--- NOTE | 2017-12-01 07:34 | PD ---
HPI Chief Complaint: Cold / Flu Symptoms Time Seen by Provider: 07:33 Travel History International Travel<30 days: No Contact w/Intl Traveler<30days: No Traveled to known affect area: No History of Present Illness HPI 46-year-old female came to the emergency room with history of various complaints including sore throat, facial congestion, nausea, vomiting for past 6 days. Patient says last night she felt like she was getting a fever and when she checked the temperature it was 102. She took Tylenol for that. Patient is afebrile in triage. She says she has come in contact with couple of sick family members with similar symptoms last week. She went to work yesterday and did not feel well the entire day. She told me that she is otherwise a healthy person. Has history of hypertension and is on medications for that. However looking into her past medical history that we have on the record patient has had multiple different issues at different periods of her life. No difficulty breathing or swallowing. PFSH Past Medical History Narrative Medical List of her past medical, surgical, social and family history is reviewed from the nursing note. 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, mini stoke) Psychiatric: Yes Reproductive: Yes Respiratory: Yes (airway disease) Integumentary: Yes (chronic athletes foot, hx of cellulitis) Immunizations Current: No Migraines: Yes Influenza Vaccination: No ?: Not LMP: 3 months ago irregular menses Menopausal: Yes : 1 Para: 1 Miscarriage: 0 : 0 Ectopic : Yes (1991) Tubal Ligation: Yes (1991) Past Surgical History AICD: No Gynecologic Surgery: Yes (tubal ligation 92, eptopic ) Joint Replacement: No Other Surgery: Yes ([facility] OF MG BLOCKAGE) Social History Alcohol Use: Yes (OCC) Tobacco Use: No (quit 14 yrs ago) Substance Use: No Allergies-Medications (Allergen,Severity, Reaction): Coded Allergies: acetaminophen (Unverified Allergy, Severe, RASH, 12/01/17) azithromycin (Unverified Allergy, Severe, rash, 12/01/17) hydrocodone (Unverified Allergy, Severe, RASH, 12/01/17) PT VERBALIZES RASH propoxyphene (Unverified Allergy, Severe, RASH, 12/01/17) sulfamethoxazole (Unverified Allergy, Severe, THROAT/TONGUE SWELLING, 12/01) trimethoprim (Unverified Allergy, Severe, THROAT/TONGUE SWELLING, 12/01/17) amoxicillin (Unverified Adverse Reaction, Severe, N/V/D, 12/01/17) clavulanic acid (Unverified Adverse Reaction, Severe, N/V/D, 12/01/17) Comments List of her allergies reviewed from the nursing note. Reported Meds & Prescriptions Reported Meds & Active Scripts Active Reported Feosol (Ferrous Sulfate) 200 Mg Tab 65 Mg PO DAILY Vitamin D (Cholecalciferol) 400 Unit/Ml Drops 400 Units PO EVERY OTHER DAY Lisinopril 10 Mg Tab 10 Mg PO EVERY OTHER DAY Aspirin 81 Mg Chew 81 Mg CHEW EVERY OTHER DAY Narrative Medication List of her home medications reviewed from the nursing note. Review of Systems Except as stated in HPI: all other systems reviewed are Neg General / Constitutional: Positive: Fever HENT: Positive: Sore Throat Gastrointestinal: Positive: Nausea, Vomiting Physical Exam Narrative GENERAL: Awake, alert, morbidly obese, mild distress SKIN: Focused skin assessment warm/dry. HEAD: Atraumatic. Normocephalic. EYES: Pupils equal and round. No scleral icterus. No injection or drainage. ENT: No nasal bleeding or discharge. Mucous membranes pink and moist. Pharynx does not show any erythema or exudates. NECK: Trachea midline. No JVD. CARDIOVASCULAR: Regular rate and rhythm. No murmur appreciated. RESPIRATORY: No accessory muscle use. Clear to auscultation. Breath sounds equal bilaterally. GASTROINTESTINAL: Abdomen soft, non-tender, nondistended. Hepatic and splenic margins not palpable. MUSCULOSKELETAL: No obvious deformities. No clubbing. No cyanosis. No edema. NEUROLOGICAL: Awake and alert. No obvious cranial nerve deficits. Motor grossly within normal limits. Normal speech. PSYCHIATRIC: Appropriate mood and affect; insight and judgment normal. Data Data Last Documented VS Vital Signs Date Time Temp Pulse Resp B/P (MAP) Pulse Ox O2 Delivery O2 Flow Rate FiO2 12/01/17 09:30 12/01/17 09:30 102 18 96 Room Air 12/01/17 08:10 99.3 Orders Orders Influenzae A/B Antigen (12/01/17 07:40) Group A Rapid Strep Screen (12/01/17 07:40) Strep Culture (Group A) (12/01/17 07:45) Orthostatic Vital Signs (12/01/17 08:14) Ibuprofen (Motrin) (12/01/17 08:15) Sepsis Workup Initiated (12/01/17 ) Complete Blood Count With Diff (12/01/17 08:25) Comprehensive Metabolic Panel (12/01/17 08:25) Lactic Acid Sepsis Protocol (12/01/17 08:25) Urinalysis - C+S If Indicated (12/01/17 08:25) Blood Culture (12/01/17 08:25) Chest, Single Ap (12/01/17 08:25) Blood Glucose (12/01/17 08:25) Ecg Monitoring (12/01/17 08:25) Iv Access Insert/Monitor (12/01/17 08:25) Oximetry (12/01/17 08:25) Oxygen Administration (12/01/17 08:25) Sodium Chlor 0.9% 1000 Ml Inj (Ns 1000 M (12/01/17 08:30) Ed Discharge Order (12/01/17 09:23) Labs Laboratory Tests Test 12/01/17 08:30 12/01/17 08:40 Urine Collection Type CLEAN CATCH Urine Color YELLOW Urine Turbidity CLEAR Urine pH 5.5 Urine Specific [place] 1.020 Urine Protein NEG mg/dL Urine Glucose (UA) NEG mg/dL Urine Ketones NEG mg/dL Urine Occult Blood NEG Urine Nitrite NEG Urine Bilirubin NEG Urine Urobilinogen 0.2 MG/DL Urine Leukocyte Esterase NEG Urine RBC 0-3 /hpf Urine WBC 0-2 /hpf Urine Squamous Epithelial Cells 0-5 /hpf Microscopic Urinalysis Comment CULT NOT INDICATED White Blood Count 4.8 TH/MM3 Red Blood Count 5.03 MIL/MM3 Hemoglobin 13.3 GM/DL Hematocrit 40.8 % Mean Corpuscular Volume 81.0 FL Mean Corpuscular Hemoglobin 26.4 PG Mean Corpuscular Hemoglobin Concent 32.5 % Red Cell Distribution Width 14.9 % Platelet Count 260 TH/MM3 Mean Platelet Volume 7.7 FL Neutrophils (%) (Auto) 75.5 % Lymphocytes (%) (Auto) 10.7 % Monocytes (%) (Auto) 11.1 % Eosinophils (%) (Auto) 1.9 % Basophils (%) (Auto) 0.8 % Neutrophils # (Auto) 3.7 TH/MM3 Lymphocytes # (Auto) 0.5 TH/MM3 Monocytes # (Auto) 0.5 TH/MM3 Eosinophils # (Auto) 0.1 TH/MM3 Basophils # (Auto) 0.0 TH/MM3 CBC Comment DIFF FINAL Differential Comment Blood Urea Nitrogen 13 MG/DL Creatinine 1.00 MG/DL Random Glucose 101 MG/DL Total Protein 7.8 GM/DL Albumin 3.4 GM/DL Calcium Level 8.6 MG/DL Alkaline Phosphatase 91 U/L Aspartate Amino Transf (AST/SGOT) 17 U/L Alanine Aminotransferase (ALT/SGPT) 24 U/L Total Bilirubin 0.4 MG/DL Sodium Level 139 MEQ/L Potassium Level 3.8 MEQ/L Chloride Level 106 MEQ/L Carbon Dioxide Level 27.1 MEQ/L Anion Gap 6 MEQ/L Estimat Glomerular Filtration Rate 60 ML/MIN Lactic Acid Level 1.2 mmol/L MDM Medical Decision Making Medical Screen Exam Complete: Yes Emergency Medical Condition: Yes Medical Record Reviewed: Yes Differential Diagnosis Viral illness, influenza, strep pharyngitis Narrative Course 8:12 AM rapid strep and influenza was negative. I have asked the nurse to do orthostatic vital signs. Patient will get some ibuprofen. 9:23 AM patient's orthostatic vital signs were positive. The heart rate went up from 104-124 when she stood up. I ordered blood test and IV fluid bolus based on this. Blood test results are back and within normal limits. UA is negative. Patient is getting 2 L of IV fluid bolus. She will be discharged home after that. Procedures EKG Prior to Arrival: No Diagnosis Primary Impression: Viral illness Additional Impression: Dehydration Referrals: Primary Care Physician 2 days Additional Instructions: Drink lots of fluid to stay hydrated. Follow-up with your primary care next couple days if symptoms do not improve significantly. Return to the ER if condition worsens any other new concerns. Take Motrin/Advil/ibuprofen/Tylenol for fever and or pain. These medications are available [id number]. Med/Other Pt SpecificInfo: No Change to Meds Disposition: 01 DISCHARGE HOME Condition: Josiah Jones MD December 01, 2017 07:34
[2017-12-01 08:10] VITALS: BP 154/76; PULSE 108; RESP 18; TEMP 99.3; O2SAT 94
[2017-12-01 08:15] VITALS: BP_SYST 137; BP_SYST 144; BP_SYST 147; BP_DIAS 77; BP_DIAS 83; BP_DIAS 86; RESP 18; RESP 20; RESP 22
[2017-12-01] MEDS ORDERED: IBUPROFEN 600 MG TAB PO ONE (08:15)
[2017-12-01] MEDS ORDERED: SODIUM CHLOR 0.9% 1000 ML INJ 1,000 ML IV ONE (08:30)
[2017-12-01 08:45] VITALS: O2SAT 94
[2017-12-01 08:53] LABS: AUTOMATED NEUTROPHIL # 3.7 TH/MM3 (1.8-7.7); BASOPHIL % 0.8 % (0.0-2.0); EOSINOPHIL # 0.1 TH/MM3 (0-0.4); EOSINOPHIL % 1.9 % (0.0-4.0); HEMATOCRIT 40.8 % (35.0-46.0); HEMOGLOBIN 13.3 GM/DL (11.6-15.3); LYMPH % 10.7 % (9.0-44.0); LYMPHOCYTE # 0.5 TH/MM3 (1.0-4.8); MEAN CORPUSCULAR HEMOGLOBIN 26.4 PG (27.0-34.0); MEAN CORPUSCULAR HGB CONC 32.5 % (32.0-36.0); MEAN PLATELET VOLUME 7.7 FL (7.0-11.0); MONO % 11.1 % (0.0-8.0); MONOCYTE # 0.5 TH/MM3 (0-0.9); NEUT % 75.5 % (16.0-70.0); PLATELET COUNT 260 TH/MM3 (150-450); RED BLOOD COUNT 5.03 MIL/MM3 (4.00-5.30); RED CELL DISTRIBUTION WIDTH 14.9 % (11.6-17.2); WHITE BLOOD COUNT 4.8 TH/MM3 (4.0-11.0)
[2017-12-01 08:59] LABS: BILIRUBIN, URINE NEG (NEG); BLOOD, URINE NEG (NEG); GLUCOSE,URINE NEG (NEG); KETONE, URINE NEG (NEG); NITRITE,URINE NEG (NEG); PH, URINE 5.5 (5.0-8.5); URINE COLOR YELLOW (YELLW/STRAW); URINE LEUKOCYTE ESTERASE NEG (NEG)
[2017-12-01 09:03] LABS: CHLORIDE 106 MEQ/L (98-107); SODIUM (NA) 139 MEQ/L (136-145)
[2017-12-01 09:05] LABS: RBC, URINE 0-3 /hpf (0-3); SQUAMOUS EPITHELIAL CELL URINE 0-5 /hpf (0-5); WBC, URINE 0-2 /hpf (0-5)
[2017-12-01 09:07] LABS: CALCIUM 8.6 MG/DL (8.5-10.1)
[2017-12-01 09:08] LABS: ALBUMIN 3.4 GM/DL (3.4-5.0); BICARBONATE 27.1 MEQ/L (21.0-32.0); BLOOD UREA NITROGEN 13 MG/DL (7-18); GLUCOSE,RANDOM 101 MG/DL (74-106)
[2017-12-01 09:11] LABS: ALT (GPT) 24 U/L (10-53); AST (GOT) 17 U/L (15-37); GLOMERULAR FILTRATION RATE 60 ML/MIN (>89)
[2017-12-01 09:12] LABS: TOTAL BILIRUBIN ADULT 0.4 MG/DL (0.2-1.0)
[2017-12-01 09:13] LABS: TOTAL PROTEIN 7.8 GM/DL (6.4-8.2)
[2017-12-01 09:14] LABS: ALKALINE PHOSPHATASE 91 U/L (45-117)
[2017-12-01 09:30] VITALS: BP 149/84; PULSE 102; RESP 18; O2SAT 96
--- NOTE | 2017-12-01 09:36 | RADRPT ---
EXAM DATE: 12/01/2017 9:11 AM EDT AGE/SEX: 46 years / Female INDICATIONS: 'Flu' symptoms for 4 days. CLINICAL DATA: This is the patient's initial encounter. Patient reports that signs and symptoms have been present for 4 - 6 days and indicates a pain score of 7/10. MEDICAL/SURGICAL HISTORY: None. None. COMPARISON: [facility], CHEST PA & LAT, 07/11/2015. . FINDINGS: A single AP view of the chest demonstrates the lungs to be symmetrically aerated without evidence of mass, confluence infiltrate or effusion. There is mild streaky opacity in the perihilar regions exten ding into the lower lobes. The cardiomediastinal contours are unremarkable. Osseous structures are i ntact. CONCLUSION: Mild streaky opacity in the perihilar regions with no focal consolidation. This could represent a vir al pneumonitis. Electronically signed by: Chino De La Fuente MD 12/01/2017 9:35 AM EDT
== END 2017-12-01 09:35 | disposition home or self-care (01) ==
LOC: PHED 07:13
DX: B34.9 Viral infection, unspecified (principal); E86.0 Dehydration; I10 Essential (primary) hypertension; D64.9 Anemia, unspecified; J45.909 Unspecified asthma, uncomplicated; I73.00 Raynaud's syndrome without gangrene; E78.00 Pure hypercholesterolemia, unspecified; F41.9 Anxiety disorder, unspecified; Z86.73 Personal history of transient ischemic attack (TIA), and cerebral infarction without residual deficits
CPT/HCPCS: 71045; 80053; 81001; 83605; 85025; 87040; 87081; 87804; 87880; 99284; J7030